=== PATIENT | male | born 1950 | race Caucasian/White ===

== ENCOUNTER 2019-09-16 12:25 | Emergency (ER) | payer MEDICARE ==
[2019-09-16] MEDS ORDERED: MECLIZINE HCL 25 MG TABLET PO ONE (13:05)
[2019-09-16 13:26] LABS: ABSOLUTE BASOPHILS # (AUTO) 0.1 10^3/uL (0.0-0.2); ABSOLUTE EOSINOPHILS # (AUTO) 0.1 10^3/uL (0.0-0.6); ABSOLUTE LYMPHOCYTES (AUTO) 2.2 10^3/uL (0.5-4.7); ABSOLUTE MONOCYTES (AUTO) 0.8 10^3/uL (0.1-1.4); ABSOLUTE NEUT (AUTO) 3.8 10^3/uL (1.7-8.2); BASOPHILS % (AUTO) 0.8 % (0-2); EOSINOPHILS % (AUTO) 1.4 % (0-6); HEMATOCRIT 42.4 % (37.9-51.0); HEMOGLOBIN 14.7 g/dL (13.5-17.0); LYMPHOCYTES % (AUTO) 31.6 % (13-45); MEAN CORPUSCULAR HEMOGLOBIN 30.5 pg (27.0-33.4); MEAN CORPUSCULAR HGB CONC 34.6 g/dL (32.0-36.0); MEAN CORPUSCULAR VOLUME 88 fl (80-97); MONOCYTES % (AUTO) 11.5 % (3-13); PLATELET COUNT 268 10^3/uL (150-450); RED BLOOD COUNT 4.81 10^6/uL (4.35-5.55); RED CELL DISTRIBUTION WIDTH 13.7 % (11.5-14.0); SEGMENTED NEUTROPHILS % (AUTO) 54.7 % (42-78); TOTAL CELLS COUNTED % (AUTO) 100 %
[2019-09-16 13:35] LABS: INTERNATIONAL RATION (INR) 0.97; PROTHROMBIN TIME 12.9 SEC (11.4-15.4)
[2019-09-16 13:45] LABS: ALBUMIN 4.6 g/dL (3.5-5.0); ALKALINE PHOSPHATASE 60 U/L (38-126); ANION GAP 12 (5-19); ASPARTATE AMINO TRANSFERASE 22 U/L (17-59); BILIRUBIN,DIRECT 0.3 mg/dL (0.0-0.4); BILIRUBIN,TOTAL 0.6 mg/dL (0.2-1.3); BLOOD UREA NITROGEN 42 mg/dL (7-20); CALCIUM 9.5 mg/dL (8.4-10.2); CARBON DIOXIDE 27 mmol/L (22-30); CHLORIDE 96 mmol/L (98-107); CREATINE KINASE 53 U/L (55-170); GLUCOSE 99 mg/dL (75-110); POTASSIUM 5.2 mmol/L (3.6-5.0); TOTAL PROTEIN 8.1 g/dL (6.3-8.2)
[2019-09-16 13:56] LABS: CREATINE KINASE MB 0.78 ng/mL (<4.55)
[2019-09-16 13:57] LABS: TROPONIN I < 0.012 ng/mL
[2019-09-16] MEDS ORDERED: NORMAL SALINE 1000 ML 1,000 ML IV ONE (14:43)
--- NOTE | 2019-09-16 14:48 | ER Document Report ---
Entered by JUSTIN OBRIEN SCRIBE 09/16/19 1304 Acting as scribe for:SHIV RENEE MD ED Dizziness/Weakness - General Chief Complaint: Dizziness Stated Complaint: DIZZINESS Time Seen by Provider: 09/16/19 12:53 Mode of Arrival: Ambulatory Information source: Patient Notes: This 69 year old male patient presents to the emergency department today with complaints of dizziness for the last three days. Patient has noticed that he seems to only get dizzy when he goes to stand up from sitting or lying. Patient also reports a burning sensation in his stomach that is happened twice in the past 2 weeks. There is some nauseousness associated with that. Patient states that he has not noticed any dark or tarry stool. Later during the course of the patient's stay here in the emergency room, he mentioned that he had noticed problems thinking of words that he wanted to say, including unable to come up with a word hospital when he was trying to tell His spouse where he wanted her to take him. This is been occurring now for probably 1 to 2 days. - Related Data Allergies/Adverse Reactions: codeine Allergy (Verified 09/16/19 12:37) Past Medical History - General Information source: Patient - Social History Smoking Status: Former Smoker Cigarette use (# per day): No Chew tobacco use (# tins/day): No Frequency of alcohol use: None Drug Abuse: None Lives with: Family Family History: Reviewed & Not Pertinent Patient has suicidal ideation: No Patient has homicidal ideation: No - Past Medical History Cardiac Medical History: Reports: Hx Hypertension Renal/ Medical History: Reports: Hx Benign Prostatic Hyperplasia Malignancy Medical History: 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, treated with chemo Past Surgical History: Reports: Other - Cataract surgery Review of Systems - Review of Systems Constitutional: No symptoms reported EENT: No symptoms reported Cardiovascular: See HPI, Dizziness Respiratory: No symptoms reported Gastrointestinal: See HPI Genitourinary: No symptoms reported Male Genitourinary: No symptoms reported Musculoskeletal: No symptoms reported Skin: No symptoms reported Hematologic/Lymphatic: No symptoms reported Neurological/Psychological: No symptoms reported -: Yes All other systems reviewed and negative Physical Exam - Vital signs Vitals: Temp Pulse Resp BP Pulse Ox 97.9 F 68 16 116/65 100 09/16/19 12:31 09/16/19 12:31 09/16/19 12:31 09/16/19 12:31 09/16/19 12:31 - Notes Notes: Physical Exam: General: Alert, appears well. Patient is oriented. He has no difficulties in speech or recall at this time. HEENT: Normocephalic. Atraumatic. PERRL. Extraocular movements intact. Oropharynx clear. Conjunctiva are mildly injected. Neck: Supple. Non-tender. Respiratory: No respiratory distress. Clear and equal breath sounds bilaterally. Cardiovascular: Regular rate and rhythm. Abdominal: Normal Inspection. Non-tender. No distension. Normal Bowel Sounds. Back: No gross abnormalities. Extremities: Moves all four extremities. Upper extremities: Normal inspection. Normal ROM. Normal strength. Lower extremities: Normal inspection. No edema. Normal ROM. Normal strength. Neurological: Normal cognition. AAOx4. Normal speech. Psychological: Normal affect. Normal Mood. Skin: Warm. Dry. Normal color. Course - Re-evaluation Re-evalutation: 09/16/19 17:20 The patient did not have any nystagmus on initial exam. About an hour or more after he got the Antivert, he reported he still got the dizzy type sensation standing up. I had him sit up and look about rapidly and he did not have any nystagmus or dizzy sensation. Depends on what you want me what kind of your person he is looking for After IV fluids, the patient is able to stand up without having the dizzy and sensation. His blood pressure is now up to 139 systolic. The urine shows specific gravity 1.020 with 69 hyaline casts. His BUN is 42 with creatinine 1.97, he does admit to not drinking as much fluids as he should. He has presently just relocated to this area. He is living in his car with his spouse and 4 dogs. He is waiting for housing to open up at this time. - Vital Signs Vital signs: Temp Pulse Resp BP Pulse Ox 97.9 F 70 18 118/78 99 09/16/19 12:31 09/16/19 13:25 09/16/19 15:01 09/16/19 15:01 09/16/19 15:01 - Laboratory Result Diagrams: 09/16/19 13:06 09/16/19 13:06 Laboratory results interpreted by me: 09/16/19 09/16/19 13:06 13:45 Sodium 134.7 L Potassium 5.2 H Chloride 96 L BUN 42 H Creatinine 1.97 H Est GFR ( Amer) 41 L Est GFR (MDRD) Non-Af 34 L Creatine Kinase 53 L Urine Blood SMALL H Ur Leukocyte Esterase SMALL H - Diagnostic Test Radiology reviewed: Image reviewed, Reports reviewed - CT scan of the head is unremarkable. - EKG Interpretation by Me EKG shows normal: Sinus rhythm, [place], Intervals, ST-T Waves. abnormal: QRS Complexes - Abnormal R wave progression Rate: Normal - 63 Rhythm: NSR [place]/QRS: Left axis deviation When compared to previous EKG there are: Previous EKG unavailable Discharge - Discharge Clinical Impression: Orthostatic dizziness, Dehydration Condition: Stable Disposition: HOME, SELF-CARE Additional Instructions: Orthostatic Hypotension: You have orthostatic hypotension. Your blood pressure goes down when you stand up. Symptoms can include dizziness, transient loss of vision, ringing in the ears, nausea, and fainting. At this time, there's no evidence of a serious problem requiring hospitalization. Orthostatic hypotension can be caused by dehydration, poor nutrition, over- exercise, or medication. For some people, orthostatic hypotension is an ongoing problem, and no cause can be found. We usually treat orthostatic hypotension with fluids. We look for a treatable cause. If no cause was found, you should get enough rest, exercise moderately, and get plenty of fluids. When you feel the first symptoms sug gesting you might faint, sit or squat down as quickly as you can. If symptoms don't go away quickly, lie down. Call the doctor or return if you are worsening or if new symptoms develop. Dehydration: Dehydration can result from vomiting or diarrhea, fever, or decreased intake of fluids. If severe, hospitalization and intravenous fluids may be required. Most cases are treated at home with fluids by mouth. For the next 24 hours, drink lots of clear fluids. In mild cases, this can be water and soda pop or sports drinks. Try to get at least 3 quarts of fluid per day. If vomiting occurs, continue to drink the fluids frequently (every 15 to 20 minutes), but in small amounts (one or two ounces). Call the doctor or return for re-examination if you become progressively weak, vomit repeatedly, or have other new symptoms. The dizziness you are experiencing when you stand up is probably due to your blood pressure being low from dehydration. Your lab work shows that you are actually putting your kidneys at risk from not drinking enough fluids. Be sure to be drinking lots of fluids so that when you are urinating it is clear. Follow-up with a local medical doctor if not improving. RETURN TO THE EMERGENCY ROOM IF ANY NEW OR WORSENING SYMPTOMS. I personally performed the services described in the documentation, reviewed and edited the documentation which was dictated to the scribe in my presence, and it accurately records my words and actions.
--- NOTE | 2019-09-16 15:23 | RADIOLOGY REPORT (SQ) ---
EXAM DESCRIPTION: CT HEAD WITHOUT IMAGES COMPLETED DATE/TIME: 09/16/2019 3:04 pm REASON FOR STUDY: Dizziness, difficulty remembering words COMPARISON: None. TECHNIQUE: Axial images acquired through the brain without intravenous contrast. Images reviewed wi th bone, brain and subdural windows. Additional sagittal and coronal reconstructions were generated. Images stored on PACS. All CT scanners at this facility use dose modulation, iterative reconstruction, and/or weight based d osing when appropriate to reduce radiation dose to as low as reasonably achievable (ALARA). [facility]: Dose Right [facility]: CareDose [facility]: Dose Right [facility]: Teradose 4D [facility]: Smart [employer] RADIATION DOSE: CT Rad equipment meets quality standard of care and radiation dose reduction techniq ues were employed. CTDIvol: 53.2 mGy. DLP: 1017 mGy-cm. mGy. LIMITATIONS: None. FINDINGS: VENTRICLES: Normal size and contour. CEREBRUM: No masses. No hemorrhage. No midline shift. No evidence for acute infarction. Few scatte red areas of low density in the white matter most likely chronic small vessel ischemic changes. CEREBELLUM: No masses. No hemorrhage. No alteration of density. No evidence for acute infarction. EXTRAAXIAL SPACES: No fluid collections. No masses. ORBITS AND GLOBE: No intra- or extraconal masses. Normal contour of globe without masses. CALVARIUM: No fracture. PARANASAL SINUSES: No fluid or mucosal thickening. SOFT TISSUES: No mass or hematoma. OTHER: No other significant finding. IMPRESSION: NORMAL BRAIN CT WITHOUT CONTRAST. EVIDENCE OF ACUTE STROKE: NO. COMMENT: Quality ID # [id number]: Final reports with documentation of one or more dose reduction techniques (e.g., Automated exposure control, adjustment of the mA and/or kV according to patient size, use of iterative reconstruction technique) TECHNICAL DOCUMENTATION: JOB ID: [id number] 2010 [employer]- All Rights Reserved Reading location - IP/workstation name: [email or web address]
[2019-09-16 15:52] LABS: APPEARANCE,URINE CLOUDY; BILIRUBIN,URINE NEGATIVE (NEGATIVE); COLOR,URINE YELLOW; GLUCOSE, URINE NEGATIVE (NEGATIVE); KETONES,URINE NEGATIVE (NEGATIVE); LEUKOCYTE ESTERASE,URINE SMALL (NEGATIVE); NITRITE,URINE NEGATIVE (NEGATIVE); PROTEIN,URINE NEGATIVE (NEGATIVE); UROBILINOGEN,URINE NEGATIVE mg/dL (<2.0)
--- NOTE | 2019-09-16 16:04 | EKG REPORT ---
SEVERITY:- ABNORMAL ECG - SINUS RHYTHM LEFT AXIS DEVIATION ABNRM R PROG, CONSIDER ASMI OR LEAD PLACEMENT : Confirmed by: Delonte Escobar MD 16-Sep-2019 16:04:22
[2019-09-16 17:44] VITALS: BP 128/72
== END 2019-09-16 17:44 | disposition home or self-care (01) ==
LOC: ER 12:25
DX: I95.1 Orthostatic hypotension (principal); E86.0 Dehydration; R42 Dizziness and giddiness; I10 Essential (primary) hypertension; Z88.6 Allergy status to analgesic agent; Z85.72 Personal history of non-Hodgkin lymphomas
CPT/HCPCS: 93005; 99284; 96360; 96361; 36415; 82553; 82550; 83690; 85025; 85610; 80053; 81001; 84484; 70450; 93010; A9270; J7030